=== PATIENT | male | born 1960 | race Caucasian/White ===

== ENCOUNTER → 2020-01-30 13:16 | Outpatient (CLI) | payer OTHER, SELFPAY ==
--- NOTE | 2020-01-30 | DI.MRI.S_ITS ---
PROCEDURE: MR LUMBAR SPINE WO CON INDICATIONS: Spinal stenosis, lumbar region TECHNIQUE: Noncontrast sagittal T1 spin echo and T2 fast echo, sagittal STIR, axial T1 and T2 fast spin echo through the lumbar spine. In cases with scoliosis, additional coronal T2 fast spin echo may be performed. COMPARISON: [facility], MR, L-SPINE W&WO CONTRAST, 01/16/2017, 8:49. [facility], CR, XR LUMBAR SPINE FLEXION EXTENSION, 01/08/2020, 9:04. [facility], CR, L-SPINE 2-3 VIEWS, 01/13/2015, 13:55. [facility], MR, L-SPINE WITHOUT CONTRAST, 12/24/2014, 7:24. FINDINGS: Image quality: Excellent. Alignment and Curvature: 5 lumbar type vertebral bodies are present by plain film. Mild grade 1 retrolisthesis of L1 on L2, L2 on L3, L3 on L4, and L4 on L5. Bone Marrow: Marrow is of normal overall signal. No acute vertebral body compression fractures. Mild reactive signal within the endplates adjacent to the L1-L2, L2-L3, and L3-L4 intervertebral discs. Spinal Cord: Conus medullaris terminates at the mid L1 level. Visualized cord demonstrates normal signal and size. Paraspinous Soft Tissues: No paravertebral masses. L1-L2: Moderate disc height loss and desiccation. Mild diffuse disc bulge with superimposed small broad-based right posterolateral protrusion. Mild facet and ligamentum flavum hypertrophy. Mild epidural lipomatosis. Mild canal stenosis. Mild bilateral foraminal stenosis. L2-L3: Moderate disc desiccation. Mild disc height loss. Mild diffuse disc bulge with superimposed small left paracentral protrusion. Mild facet and ligamentum flavum hypertrophy. Mild epidural lipomatosis. Mild canal stenosis. Mild bilateral foraminal stenosis. No change. L3-L4: Moderate disc height loss and desiccation. Moderate diffuse disc bulge with superimposed right paracentral protrusion. Mild facet and ligamentum flavum hypertrophy. Mild epidural lipomatosis. Increased, severe canal stenosis. No change in moderate subarticular foraminal stenosis bilaterally. L4-L5: Moderate disc desiccation. Mild disc height loss. Mild diffuse disc bulge with superimposed left posterolateral and far lateral protrusion. Mild facet and ligamentum flavum hypertrophy. Mild epidural lipomatosis. Mild canal stenosis. Severe left and moderate right foraminal stenosis. Left L4 nerve root compression. No change. L5-S1: Mild disc height loss and desiccation. Mild diffuse disc bulge. Mild bilateral facet hypertrophy. Mild canal stenosis. Moderate subarticular foraminal stenosis bilaterally. IMPRESSION: 1. Multilevel degenerative disc and facet disease, as well as ligamentum flavum hypertrophy and epidural lipomatosis. 2. Multilevel canal stenosis, worst at L3-L4, where there is severe canal stenosis. 3. Multilevel foraminal stenoses, worst at L4-L5 where there is associated intraforaminal nerve root compression. Recommend correlation with clinical symptoms to ascertain relevance of this finding. Dictated by: Chloe Whitehead M.D. on 01/30/2020 at 15:13 Approved by: Chloe Whitehead M.D. on 01/30/2020 at 15:19
== END ==
PROVIDERS: PCP General Practice; Referring Provider Orthopaedic Surgery Orthopaedic Surgery of the Spine; Visit Provider Orthopaedic Surgery Orthopaedic Surgery of the Spine
DX: M48.061 Spinal stenosis, lumbar region without neurogenic claudication (principal); M48.07 Spinal stenosis, lumbosacral region; M51.36 Other intervertebral disc degeneration, lumbar region; M51.37 Other intervertebral disc degeneration, lumbosacral region; E88.2 Lipomatosis, not elsewhere classified
CPT/HCPCS: 72148

== ENCOUNTER 2021-02-17 14:52 | Emergency (ER) | payer OTHER, SELFPAY | END 2021-02-17 15:25 | disposition left against medical advice (07) | PROVIDERS: Emergency Provider Emergency Medicine; PCP General Practice ==

== ENCOUNTER → 2021-09-21 10:32 | Outpatient (CLI) | payer OTHER, SELFPAY ==
[2021-09-21 12:03] LABS: Add Manual Diff / Slide Review NO; Basophils Absolute Auto 100 /uL (0-100); Basophils Percent Auto 1.2 % (0-2); Eosinophils Absolute Auto 200 /uL (0-450); Eosinophils Percent Auto 4.9 % (2-4); Hematocrit 41.2 % (41-53); Hemoglobin 14.1 g/dL (13.5-17.5); Lymphocytes Absolute Auto 1100 /uL (1100-4500); Lymphocytes Percent Auto 25.5 % (25-40); Mean Corpuscular HGB Conc 34.2 % (30-36); Mean Corpuscular Hemoglobin 30.6 PG (26-34); Mean Corpuscular Volume 89.6 fL (80-100); Monocytes Absolute Auto 500 /uL (0-900); Monocytes Percent Auto 11.4 % (3-14); Neutrophils Absolute Auto 2500 /uL (1500-7000); Platelet Count 168 X10^3/uL (150-400); Red Cell Distribution Width 14.2 % (11.6-14.8); White Blood Cell Count 4.4 X10^3/uL (4.5-11.0)
[2021-09-21 12:12] LABS: Alanine Aminotransferase 35 IU/L (<50); Albumin 4.5 g/dL (3.5-5.0); Albumin Globulin Ratio 1.6 (1.0-2.8); Alkaline Phosphatase 64 U/L (38-126); Aspartate Aminotransferase 31 IU/L (17-59); BUN Creatinine Ratio 15.7 (6-22); Bilirubin Total 0.7 mg/dL (0.2-1.3); Blood Urea Nitrogen 16 mg/dL (9-20); Calcium 9.1 mg/dL (8.4-10.2); Carbon Dioxide 33 mmol/L (22-32); Chloride 102 mmol/L (98-107); Cholesterol 221 mg/dL (140-199); Estimated Glomerular Filt Rate > 60 mL/min (>60); Globulin 2.8 g/dL (1.7-4.1); Glucose 104 mg/dL (80-110); HDL Cholesterol 49 mg/dL (40-60); HEMOLYSIS < 15 (0-50); LDL Cholesterol Calculated 131 mg/dL (<100); Sodium 141 mmol/L (137-145); Total Protein 7.3 g/dL (6.3-8.2); Triglycerides 205 mg/dL (35-150)
[2021-09-21 12:41] LABS: Prostate Specific Antigen Scrn 2.81 ng/mL (0.1-4.0)
== END ==
PROVIDERS: PCP Internal Medicine; Referring Provider Internal Medicine; Visit Provider Internal Medicine
DX: I44.7 Left bundle-branch block, unspecified (principal); Z12.5 Encounter for screening for malignant neoplasm of prostate
CPT/HCPCS: 36415; 80053; 80061; 84443; 85025; G0103

== ENCOUNTER → 2022-08-26 12:53 | Outpatient (CLI) | payer OTHER, SELFPAY ==
--- NOTE | 2022-08-26 12:55 | DI.RAD.S_ITS ---
PROCEDURE: XR HIP W PEL IF DONE LT 2V INDICATIONS: Left hip injury TECHNIQUE: To views of the hip were acquired. COMPARISON: None. FINDINGS: Bones: No fractures or dislocations. No suspicious bony lesions. The visualized pelvic ring appears intact. Mild osteoarthritic changes of the hips. Iliac enthesophytes. Soft tissues: No suspicious soft tissue calcifications or masses. Surgical clips overlie the scrotum. IMPRESSION: No acute fracture. Dictated by: Cyrus Choe M.D. on 08/26/2022 at 13:05 Approved by: Cyrus Choe M.D. on 08/26/2022 at 13:06
== END ==
PROVIDERS: PCP Internal Medicine; Referring Provider Registered Nurse; Visit Provider Registered Nurse
DX: M25.552 Pain in left hip (principal)
CPT/HCPCS: 73502

== ENCOUNTER → 2022-11-20 07:06 | Outpatient (CLI) | payer OTHER, SELFPAY ==
--- NOTE | 2022-11-20 09:06 | DI.MRI.S_ITS ---
PROCEDURE: MR LUMBAR SPINE WO CON INDICATIONS: RADICULOPATHY,LUMBAR REGION TECHNIQUE: Noncontrast sagittal T1 spin echo and T2 fast echo, sagittal STIR, and T2 fast spin echo through the lumbar spine. In cases with scoliosis, additional coronal T2 fast spin echo may be performed. COMPARISON: [facility], MR, L-SPINE W&WO CONTRAST, 01/16/2017, 8:49. [facility], MR, MR LUMBAR SPINE WO CON, 01/30/2020, 14:10. FINDINGS: Image quality: Excellent. Alignment and Curvature: Trace anterolisthesis of T12 on L1. Trace retrolisthesis of L1 on L2 and of L2 on L3 and of L5 on S1. Bone Marrow: Marrow is of normal overall signal. No acute vertebral body compression fractures. Spinal Cord: Conus medullaris terminates at the top of L1 level. Visualized cord demonstrates normal signal and size. Paraspinous Soft Tissues: No paravertebral masses. T12-L1: Development of mild to moderate disc height loss and increased diffuse disc bulge. Facet hypertrophy. Borderline canal stenosis. No significant foraminal stenosis. L1-L2: Interval increase in disc height loss. Increased disc bulge. Facet and ligament hypertrophy. Development of mild canal stenosis. Mild bilateral foraminal stenosis. L2-L3: There is a probably acute or relatively acute free disc fragment that has migrated cephalad in the left lateral recess behind L2, measuring approximately 1.2 x 0.8 x 0.4 cm, impinging on the left L2 nerve root as it is exiting into the neural foramen and also impinging on the left L3 nerve root in the left lateral recess. Reference sagittal T2 image 11 of series 3 and axial T2 image 13 of series 6. Additionally, there is moderate diffuse disc bulge. There is facet hypertrophy. There is moderate to severe stenosis at the level of the disc space. There is increase in the size of a inferior left paracentral disc extrusion with moderate narrowing of the left side of the canal inferior to the disc space, as well. L3-L4: Slight interval improvement. Interval decrease in a right paracentral disc protrusion. Diffuse disc bulge, eccentric to the right. Prominent facet and ligament hypertrophy. Moderate to severe canal stenosis. Moderate bilateral foraminal narrowing, as before. L4-L5: Interval development of disc height loss. Slight interval increase in disc bulge. Interval increase in canal stenosis, moderate to severe. Moderate bilateral foraminal narrowing with a degree of bilateral foraminal L4 nerve root impingement. L5-S1: Bilateral facet hypertrophy. Disc bulge. No canal stenosis. Bilateral mild to moderate foraminal stenosis. IMPRESSION: 1. There is significant interval worsening at L2-L3. An acute or relatively acute free disc fragment migrating superiorly in the left lateral recess behind L2 impinges on both the left L2 nerve root as it exits to the foramen and the left L3 nerve root. Additionally, there is increase in the size of an inferior left paracentral disc extrusion moderately narrowing the canal inferior to the disc space. 2. Progression of findings at T12-L1, L1-L2, and L4-L5. 3. Findings have improved slightly at L3-L4. There is still moderate to severe canal stenosis. 4. Canal stenosis is borderline at T12-L1, mild at L1-L2, moderate to severe at L2-L3, moderate to severe at L3-L4, and moderate to severe at L4-L5. 5. Multilevel foraminal narrowing as described above. Dictated by: Faizan Bullock M.D. on 11/20/2022 at 13:04 Approved by: Faizan Bullock M.D. on 11/20/2022 at 13:36
== END ==
PROVIDERS: PCP Internal Medicine; Referring Provider Orthopaedic Surgery; Visit Provider Orthopaedic Surgery
DX: M51.16 Intervertebral disc disorders with radiculopathy, lumbar region (principal); M48.061 Spinal stenosis, lumbar region without neurogenic claudication
CPT/HCPCS: 72148

== ENCOUNTER → 2023-07-04 07:51 | Outpatient (CLI) | payer OTHER, SELFPAY ==
[2023-07-04 08:37] LABS: BUN Creatinine Ratio 15.5 (6-22); Blood Urea Nitrogen 15 mg/dL (9-20); Calcium 9.2 mg/dL (8.4-10.2); Carbon Dioxide 28 mmol/L (22-32); Chloride 104 mmol/L (98-107); Cholesterol 204 mg/dL (140-199); Estimated Glomerular Filt Rate > 60 mL/min (>60); Glucose 128 mg/dL (80-110); HDL Cholesterol 51 mg/dL (40-60); HEMOLYSIS < 15 (0-50); LDL Cholesterol Calculated 117 mg/dL (<100); Sodium 140 mmol/L (137-145); Triglycerides 179 mg/dL (35-150)
== END ==
LOC: LAB 07:51
PROVIDERS: PCP Internal Medicine; Referring Provider Internal Medicine; Visit Provider Internal Medicine
DX: Z12.5 Encounter for screening for malignant neoplasm of prostate (principal); E78.2 Mixed hyperlipidemia; I44.7 Left bundle-branch block, unspecified; Z00.00 Encounter for general adult medical examination without abnormal findings
CPT/HCPCS: 36415; 80048; 80061; G0103

== ENCOUNTER 2023-07-31 07:51 | Day surgery (SDC) | payer OTHER, SELFPAY ==
[2023-07-31 08:04] VITALS: BP 150/90; PULSE 82; RESP 16; TEMP 36.1; O2SAT 99
--- NOTE | 2023-07-31 08:08 | P.HP_ITS ---
History of Present Illness History of Present Illness Date Patient Seen: 07/31/23 Time Patient Seen: 08:08 Chief complaint: SDC Narrative: 62-year-old male here for screening colonoscopy. Last colonoscopy 9 years ago. No family history of intestinal malignancy. Feels ?plugged upleft lower quadrant at times. 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 Smoking Status: Never smoker Meds Home Medications and Allergies Home Medications Medication Instructions Recorded Confirmed Type fluticasone propionate 50 1 spray intranasal DAILY 09/21/21 07/10/23 History mcg/actuation nasal spray,suspension (Flonase Allergy Relief) amitriptyline 100 mg tablet 100 mg PO DAILY #90 tabs 04/25/23 07/31/23 Rx sildenafil 50 mg tablet 50 mg PO DAILY PRN sexual activity 04/25/23 07/10/23 Rx #10 tabs cyclobenzaprine 10 mg tablet 10 mg PO TID PRN muscle spasm #30 05/15/23 07/10/23 Rx tabs amitriptyline 25 mg tablet 50 mg (2 x 25 mg) PO DAILY #180 07/05/23 07/10/23 Rx tabs sodium,potassium,mag sulfates 17.5 See Rx Instructions PO .COMPLEX 07/17/23 Rx gram-3.13 gram-1.6 gram oral soln #354 mL (Suprep Bowel Prep Kit) Allergies Allergy/AdvReac Type Severity Reaction Status Date / Time Penicillins Allergy Unknown unkown Verified 07/10/23 08:02 Exam Narrative Exam Narrative: General adult man alert oriented no acute distress Chest nonlabored respiration Extremities warm well perfused Assessment & Plan Assessment & Plan narrative: The patient requires colorectal screening and colonoscopy is recommended. Technical details were discussed. Risks, benefits, alternatives explained. Risks including but not limited to myocardial infarction, aspiration, bleeding, pain, missed lesion, incomplete examination, need for further radiographic studies, colonic perforation, and need for major abdominal surgery were discussed. All questions were answered to their satisfaction, and they are in agreement with this plan.
[2023-07-31] MEDS: LACTATED RINGERS 1,000 ML 42 ML IV (08:13)
[2023-07-31 09:20] VITALS: BP 121/81; PULSE 71; RESP 14; TEMP 36.2; O2SAT 95
--- NOTE | 2023-07-31 09:21 | P.OP.COLON_ITS ---
Operative Date/Time/Diagnoses Date of procedure: 07/31/23 Time of procedure: 09:22 Pre-op diagnosis: Colorectal screening Procedure & Clinicians Study performed: Colonoscopy Same procedure as scheduled: Yes Indications: Colorectal screening Surgeon: Clayton Pappas Procedure Notes Procedure in detail: The history and physical was performed/updated and the patient is ASA class is 2. The procedure was discussed in detail with the patient. Potential risks complications including infection, bleeding, missed diagnosis, perforation, need for surgery, and were explained. Their questions were answered and informed consent was obtained. Patient was brought to the procedure room and placed standard monitoring equipment. The patient's vital signs were monitored continuously throughout the entire procedure. Prior to starting time-out was performed. The patient was placed in the left lateral recumbent position. Procedural sedation was administered by anesthesia. Examination began with a thorough inspection of the perianal area there was no evidence of fissures, fistulae, external hemorrhoids or cutaneous malignancy. The colonoscopy scope was then placed into the anal canal and was advanced to the cecum, which was identified by the ileocecal valve , the appendiceal orifice and the confluence of the taenia. The scope was then slowly withdrawn examining colon thoroughly in all directions, irrigating it of any residual stool. The scope was retroflexed within the rectum The patient tolerated the procedure well. They will be discharged once criteria are met. The prep was of good/excellent quality. The withdrawl time was 6 minutes. FINDINGS * Normal colonoscopy. No masses polyps inflammation. Specimen(s): none sent Impression: Normal colonoscopy Post-procedure Recommendations: Colonoscopy in 10 years and High fiber diet Disposition: same day surgery
[2023-07-31 09:25] VITALS: BP 131/87; PULSE 69; RESP 13; O2SAT 95
[2023-07-31 09:30] VITALS: BP 141/99; PULSE 73; RESP 18; O2SAT 95
[2023-07-31 09:40] VITALS: BP 140/94; PULSE 70; RESP 10; O2SAT 96
== END 2023-07-31 09:53 | disposition home or self-care (01) ==
PROVIDERS: PCP Internal Medicine; Referring Provider Surgery; Visit Provider Surgery
PROC: 0DJD8ZZ Inspection of Lower Intestinal Tract, Via Natural or Artificial Opening Endoscopic (ICD-10-PCS; CPT 45378; principal; 2023-07-31 08:45)
DX: Z12.11 Encounter for screening for malignant neoplasm of colon (principal)
CPT/HCPCS: 45378; J2704

== ENCOUNTER → 2024-05-21 15:20 | Outpatient (CLI) | payer OTHER, SELFPAY ==
[2024-05-21 18:08] LABS: Aspartate Aminotransferase 33 IU/L (17-59); BUN Creatinine Ratio 14.9 (6-22); Blood Urea Nitrogen 15 mg/dL (9-20); Calcium 9.7 mg/dL (8.4-10.2); Carbon Dioxide 30 mmol/L (22-32); Chloride 103 mmol/L (98-107); Cholesterol 213 mg/dL (140-199); Estimated Glomerular Filt Rate > 60 mL/min (>60); Glucose 98 mg/dL (80-110); HDL Cholesterol 61 mg/dL (40-60); HEMOLYSIS < 15 (0-50); Hemoglobin A1C% w Est Avg Glu 5.3 % (4.0-6.0); LDL Cholesterol Calculated 131 mg/dL (<100); Potassium 4.7 mmol/L (3.4-5.1); Sodium 140 mmol/L (137-145); Triglycerides 103 mg/dL (35-150)
[2024-05-21 18:41] LABS: Prostate Specific Antigen Scrn 2.92 ng/mL (0.1-4.0)
== END ==
PROVIDERS: PCP Internal Medicine; Referring Provider Internal Medicine; Visit Provider Internal Medicine
DX: R03.0 Elevated blood-pressure reading, without diagnosis of hypertension (principal); E78.2 Mixed hyperlipidemia; Z12.5 Encounter for screening for malignant neoplasm of prostate; R73.01 Impaired fasting glucose
CPT/HCPCS: 36415; 80048; 80061; 83036; 84450; G0103

== ENCOUNTER 2024-08-10 14:21 | Emergency (ER) | payer OTHER, SELFPAY ==
[2024-08-10] VITALS (13 sets, daily range): BP systolic 139–183; BP diastolic 68–90; PULSE 57–64; RESP 9–25; TEMP 36.6; O2SAT 97–100; BMI 33.2
--- NOTE | 2024-08-10 14:46 | EKG_ITS ---
[place] [id number] [place] [id number] Test Date: 2024-08-10 Pat Name: Alcides Moore Department: [facility] Room: Gender: Male [employer] Attendant: : 1960 Requested By: Order Number: [id number] Reading MD: Delfino Arevalo Measurements Intervals [place] Rate: 58 P: 73 [place]: 194 QRS: -13 QRSD: 148 T: 117 QT: 464 QTc: 455 Interpretive Statements Sinus bradycardia Left bundle branch block Electronically Signed On 08-10-2024 18:58:16 PST by Delfino Arevalo
[2024-08-10 15:44] LABS: Alanine Aminotransferase 57 IU/L (<50); Albumin 4.4 g/dL (3.5-5.0); Albumin Globulin Ratio 1.6 (1.0-2.8); Alkaline Phosphatase 104 U/L (38-126); Aspartate Aminotransferase 41 IU/L (17-59); BUN Creatinine Ratio 14.1 (6-22); Bilirubin Total 1.8 mg/dL (0.2-1.3); Blood Urea Nitrogen 14 mg/dL (9-20); Calcium 8.8 mg/dL (8.4-10.2); Carbon Dioxide 24 mmol/L (22-32); Chloride 107 mmol/L (98-107); Estimated Glomerular Filt Rate > 60 mL/min (>60); Globulin 2.7 g/dL (1.7-4.1); Glucose 99 mg/dL (80-110); HEMOLYSIS 25 (0-50); Lipase 73 U/L (23-300); Potassium 4.2 mmol/L (3.4-5.1); Sodium 141 mmol/L (137-145); Total Protein 7.1 g/dL (6.3-8.2)
[2024-08-10 16:27] LABS: Add Manual Diff / Slide Review NO; Basophils Absolute Auto 100 /uL (0-100); Basophils Percent Auto 0.9 % (0-2); Eosinophils Absolute Auto 2100 /uL (0-450); Eosinophils Percent Auto 29.8 % (2-4); Hematocrit 42.4 % (41-53); Hemoglobin 14.4 g/dL (13.5-17.5); Lymphocytes Absolute Auto 1500 /uL (1100-4500); Lymphocytes Percent Auto 20.8 % (25-40); Mean Corpuscular Hemoglobin 30.2 PG (26-34); Monocytes Absolute Auto 600 /uL (0-900); Monocytes Percent Auto 8.1 % (3-14); Neutrophils Absolute Auto 2900 /uL (1500-7000); Neutrophils Percent Auto 40.4 % (50-75); Platelet Count 154 X10^3/uL (150-400); Red Blood Cell Count 4.77 X10^6/uL (4.5-5.9); White Blood Cell Count 7.1 X10^3/uL (4.5-11.0)
--- NOTE | 2024-08-10 19:15 | ED.ABDPAIN ---
HPI - Abdominal Pain General Chief Complaint: Abdominal Pain Stated Complaint: Abdominal pain Time Seen by Provider: 08/10/24 19:15 Source: patient Mode of arrival: Ambulatory History of Present Illness HPI narrative: 63-year-old male past medical history of hypertension hyperlipidemia left bundle branch block comes into the ED from home for evaluation of abdominal pain states it has been ongoing persistent for the past 11 days states it is near his left upper quadrant region he denies any nausea vomiting diarrhea constipation but states that he has had decreased p.o. intake secondary to his pain. He states that he believes that eating does make it a little worse but nothing makes it better. He describes the pain as a dull ache intermittent lasting for only several minutes to seconds at a time. He states that given the fact that it has not gone away in the past 11 days wanted to be evaluated for this. Denies any surgeries to the abdomen before. He denies any other symptoms such as headache visual disturbances chest pain shortness of breath fever chills nausea vomiting or any other GI/ symptoms at this time. Related Data Home Medications Medication Instructions Recorded Confirmed fluticasone propionate 50 1 spray intranasal DAILY 09/21/21 06/23/24 mcg/actuation nasal spray,suspension (Flonase Allergy Relief) Previous Rx's Medication Instructions Recorded sildenafil 50 mg tablet 50 mg PO DAILY PRN sexual activity 04/25/23 #10 tabs amitriptyline 25 mg tablet 50 mg (2 x 25 mg) PO DAILY #50 tabs 03/06/24 mirtazapine 15 mg tablet 15 mg PO BEDTIME #90 tabs 03/06/24 amlodipine 5 mg tablet 5 mg PO DAILY #90 tabs 05/21/24 omeprazole 20 mg capsule,delayed 20 mg PO DAILY 1 month #30 caps 08/10/24 release Allergies Allergy/AdvReac Type Severity Reaction Status Date / Time Penicillins Allergy Unknown unkown Verified 06/23/24 14:54 Review of Systems Review of Systems Narrative: General: Denies fever, chills, weight loss HEENT: Denies headache, eye drainage, eye irritation, head trauma, sore throat, voice change Cardiovascular: Denies any chest pain, palpitations, shortness of breath, tachycardia Respiratory: Denies any shortness of breath, cough, wheeze, stridor GI/: Positive left upper quadrant/epigastric abdominal pain, denies nausea, vomiting, diarrhea, bright red blood per rectum, melanotic stools, urinary frequency, urinary retention, dysuria, hematuria MSK: Denies any joint pain, muscle pains, swelling Skin: Denies any rashes, lesions, discoloration Neuro: Denies any headache, lightheadedness, dizziness, fainting, weakness Psych: Denies SI/HI Patient History Medical History Essential hypertension Impaired fasting glucose Elevated blood pressure reading without diagnosis of hypertension Erectile dysfunction Swelling of right parotid gland Obesity (BMI 30.0-34.9) Sensorineural hearing loss, bilateral Mixed hyperlipidemia Chronic back pain Allergic rhinitis due to pollen (~2001) Restless legs syndrome Obstructive sleep apnea (~2011) LBBB (left bundle branch block) Insomnia Surgical History Anesthesia History of back surgery (~01/2015) History of colonoscopy (~2014) Family History Father History of heart disease Mother History of heart disease Social History marital status: details: [employer]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, 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 Smoking Status: Never smoker Smoking Status: Never smoker alcohol intake frequency: a few times a week Exam Narrative Exam Narrative: General: Cooperative, comfortable, well-developed, not in acute distress HEENT: Normocephalic, atraumatic, PERRLA, normal sclera, eyelids normal, Neck: Active full range of motion, atraumatic Chest: Normal to inspection, negative crepitus, no overlying erythema ecchymosis Respiratory: Normal respiratory effort, not in acute respiratory distress, clear to auscultation bilaterally negative cough, wheeze, tachypnea, rhonchi, rales Cardiology: Regular rate rhythm negative gallop, murmur, rubs GI/: Normal to inspection, soft, nonrigid, no tenderness to palpation, exam deferred MSK: Full range of active range of motion of all 4 extremities, atraumatic Skin: No rashes lesions noted Neuro: Alert awake oriented x3, moves all 4 extremities spontaneously, cranial nerves intact, able to answer all questions appropriately follows commands appropriately Psych: Cooperative, negative suicidal or homicidal ideations Initial Vital Signs Initial Vital Signs: Vital Signs Temperature 97.8 F 08/10/24 14:42 Pulse Rate 59 L 08/10/24 14:42 Respiratory Rate 16 08/10/24 14:42 Blood Pressure 146/68 H 08/10/24 14:42 Pulse Oximetry 98 08/10/24 14:42 Oxygen Delivery Method Room Air 08/10/24 14:42 Course Orders Ordered: ED Orders 08/10/24 19:21 CT abdomen pelvis w con Stat CXR [XR chest 1V] Stat 08/10/24 19:37 MAG [Magnesium] Stat Trop I [Troponin I] Stat Discontinued Medications Famotidine (Famotidine 20 Mg/2 Ml Vial) 20 mg IV NOW ONE Stop: 08/10/24 19:22 Last Admin: 08/10/24 19:27 Dose: 20 mg Documented By: Ondansetron HCl (Ondansetron 4 Mg/2 Ml Inj) 4 mg IV NOW PRN PRN Reason: Nausea And Vomiting Ondansetron HCl (Ondansetron 4 Mg Odt) 4 mg PO NOW PRN PRN Reason: Nausea And Vomiting Vital Signs Vital signs: Vital Signs - 8 hr 08/10/24 17:57 08/10/24 18:00 08/10/24 18:00 Pulse Rate 59 L 59 L Respiratory Rate 10 L Blood Pressure 171/83 H Pulse Oximetry 99 99 08/10/24 18:30 08/10/24 18:30 08/10/24 19:00 Pulse Rate 61 Respiratory Rate 13 Blood Pressure 165/86 H 183/90 H Pulse Oximetry 99 08/10/24 19:00 08/10/24 19:30 08/10/24 20:25 Pulse Rate 61 62 61 Respiratory Rate 9 L 25 H 20 Blood Pressure Pulse Oximetry 100 99 100 08/10/24 20:30 08/10/24 21:00 08/10/24 21:30 Pulse Rate 61 64 60 Respiratory Rate 18 14 Blood Pressure Pulse Oximetry 99 98 99 08/10/24 22:05 08/10/24 22:30 08/10/24 22:33 Pulse Rate 58 L 57 L 60 Respiratory Rate Blood Pressure Pulse Oximetry 99 98 97 08/10/24 22:33 Pulse Rate Respiratory Rate Blood Pressure 139/79 Pulse Oximetry MDM - Abdominal Pain Differential Diagnosis Differential diagnosis: Likely other (ACS, pancreatitis, electrolyte abnormality, pneumonia, cholecystitis, GERD) Lab Data 08/10/24 15:48 08/10/24 15:05 Labs: Lab Results 08/10/24 08/10/24 08/10/24 Range/Units 15:05 15:48 19:37 WBC 7.1 (4.5-11.0) X10^3/uL RBC 4.77 (4.5-5.9) X10^6/uL Hgb 14.4 (13.5-17.5) g/dL Hct 42.4 (41-53) % MCV 89.0 (80-100) fL MCH 30.2 (26-34) PG MCHC 34.0 (30-36) % RDW 14.0 (11.6-14.8) % Plt Count 154 (150-400) X10^3/uL Neut % (Auto) 40.4 L (50-75) % Lymph % (Auto) 20.8 L (25-40) % [place] % (Auto) 8.1 (3-14) % Eos % (Auto) 29.8 H (2-4) % Baso % (Auto) 0.9 (0-2) % Neut # (Auto) 2900 (4938-9800) /uL Lymph # (Auto) 1500 (3418-8740) /uL [place] # (Auto) 600 (0-900) /uL Eos # (Auto) 2100 H (0-450) /uL Baso # (Auto) 100 (0-100) /uL Sodium 141 (137-145) mmol/L Potassium 4.2 (3.4-5.1) mmol/L Chloride 107 (98-107) mmol/L Carbon Dioxide 24 (22-32) mmol/L BUN 14 (9-20) mg/dL Creatinine 0.99 (0.66-1.25) mg/dL Estimated GFR > 60 (>60) mL/min BUN/Creatinine Ratio 14.1 (6-22) Glucose 99 (80-110) mg/dL Calcium 8.8 (8.4-10.2) mg/dL Magnesium 2.0 (1.6-2.3) mg/dL Total Bilirubin 1.8 H (0.2-1.3) mg/dL AST 41 (17-59) IU/L ALT 57 H (<50) IU/L Alkaline Phosphatase 104 (38-126) U/L Troponin I < 0.012 (0.01-0.034) ng/mL Total Protein 7.1 (6.3-8.2) g/dL Albumin 4.4 (3.5-5.0) g/dL Globulin 2.7 (1.7-4.1) g/dL Albumin/Globulin Ratio 1.6 (1.0-2.8) Lipase 73 (23-300) U/L Point of care testing: Urine Dip Bedside Urine Glucose Negative Bedside Urine Bilirubin - Negative Bedside Urine Ketone - Negative Urine Specific Oliver 1.010 Bedside Urine Occult Blood +/- Bedside Urine pH 6.0 Bedside Urine Protein - Negative Bedside Urine Urobilinogen - Negative Bedside Urine Nitrite - Negative Bedside Urine Leukocytes - Negative Esterase Imaging Data Chest x-ray: Radiologist's Impression: [address] [address] XRay Report Signed Patient: Alcides Moore MR#: [id number] : 1960 Acct:[id number] Age/Sex: 63 / M Date of Service: 08/10/24 Loc: ED Accession Number: [id number] Procedure: XR chest 1V Ordering Provider: Delfino Caro D.O. PROCEDURE: XR CHEST 1V INDICATIONS: epigastric pain (LUQ worse) TECHNIQUE: One view of the chest was acquired. COMPARISON: None. FINDINGS: Surgical changes and devices: None. Lungs and pleura: Lungs are clear. No pleural effusions or pneumothorax. Mediastinum: Mediastinal contours appear normal. Heart size is normal. Bones and chest wall: No suspicious bony lesions. Overlying soft tissues appear unremarkable. IMPRESSION: No acute cardiopulmonary pathology. CT scan - abdomen/pelvis: Radiologist's Impression: [address] [address] [address] Scan Report Signed Patient: Alcides Moore MR#: [id number] : 1960 Acct:[id number] Age/Sex: 63 / M Date of Service: 08/10/24 Loc: ED Accession Number: [id number] Procedure: CT abdomen pelvis w con Ordering Provider: Delfino Caro D.O. PROCEDURE: CT ABDOMEN PELVIS W CON INDICATIONS: LUQ abd pain TECHNIQUE: After the administration of intravenous contrast, axial sections acquired from the lung bases to the pubic symphysis. Coronal and sagittal reformats were performed. For radiation dose reduction, the following was used: automated exposure control, adjustment of mA and/or kV according to patient size. COMPARISON: None. FINDINGS: Image quality: Diagnostic. Lower Chest: No significant findings. ABDOMEN: Liver: No solid mass. Gallbladder: Gallbladder is distended. No radiopaque gallstones or wall thickening. Biliary ducts: No biliary dilation. Pancreas: No ductal dilation. Spleen: Size is within normal limits. Adrenal Glands: No adrenal nodules. Kidneys and Ureters: Punctate bilateral nonobstructing renal calculi are seen measures 1-2 mm in size. No hydronephrosis. No solid mass. There is mild left perinephric fat stranding. No complex renal cystic lesion which requires follow up. Simple appearing lower pole right renal cyst is seen. Stomach and Bowel: There is no bowel obstruction. No abnormal bowel wall thickening or mesenteric fat stranding. Appendix is visualized and is within normal limits. No abscess collection. Mild sigmoid diverticulosis without CT evidence of acute diverticulitis. Peritoneum: No abnormal intraperitoneal fluid. No free air. Ventral Wall: No significant ventral hernia. Abdominal Nodes: No retroperitoneal or mesenteric adenopathy by size criteria. Vessels: Aorta and inferior vena cava are normal in size. PELVIS: Pelvic Organs: Enlarged prostate gland with mass effect on floor of urinary bladder is seen. Bladder: Mild bladder wall thickening. No discrete bladder wall mass. Pelvic Nodes: No enlarged lymph nodes. Miscellaneous: No inguinal hernias are seen. Bones: No aggressive osseous abnormality. Degenerative disc disease throughout lumbar spine is seen more notably at L1-2, L2-3 and L4-5 levels. IMPRESSION: 1. Bilateral nonobstructing renal calculi. No hydronephrosis or hydroureter. 2. Very mild left perinephric fat stranding. Infectious inflammatory pyelonephritis cannot be excluded. Clinical correlation is recommended. 3. Mild diffuse bladder wall thickening. No discrete bladder wall mass. Enlarged prostate gland with mass effect on floor of urinary bladder and may suggest chronic urinary outlet obstruction. 4. No bowel obstruction or abnormal bowel wall thickening. Normal appendix. No free fluid or free air. Mild sigmoid diverticulosis without CT evidence of acute diverticulitis. 5. Degenerative disc disease in lumbar spine as above. ECG Data Interpretation: EKG interpreted by ED physician sinus bradycardia at 58 beats per minute QTC 455 left bundle branch block noted normal axis nonspecific ST changes (patient with a known left bundle branch block) MDM Narrative Medical decision making narrative: 63-year-old male with a history of hypertension hyperlipidemia presenting for 11 days of dull aching left upper quadrant abdominal pain states worse with p.o. intake. Patient had EKG at baseline nonischemic with known left bundle branch block not meeting Sgarbossa criteria. Lab work without any leukocytosis mild elevation in his bilirubin at 1.8 but no positive Georges's sign no tenderness to palpation of the right upper quadrant region. Patient had chest x-ray and CT abdomen pelvis performed. Chest x-ray without any acute signs of cardiopulmonary abnormalities. CT abdomen without any acute findings. Patient had improvement of symptoms after administration of medication here, patient's symptoms more likely GI in nature. Patient will be sent home with symptomatic relief instructed follow up with primary care and GI in outpatient setting he was given strict return precautions he verbalized understanding of this and agrees to being discharged home with outpatient follow up Discharge Plan Departure Patient Disposition: Home Clinical Impression: Abdominal pain Instructions: DI for Abdominal Pain-Adult Activity Restrictions/Additional Instructions: Please follow up with primary care and GI Please read the discharge instructions sheet carefully and bring all papers to all doctor follow-up visits, as it may contain information that your doctor may want to see. Disease processes change and evolve, if your symptoms worsen or if you develop any new symptoms that are concerning to you please return for evaluation. Your evaluation today does not show any evidence of any life-threatening/serious illnesses requiring admission to the hospital or surgery. Please follow-up with your doctor for re-evaluation in approximately 1 day. Seek immediate medical attention for any worrisome symptoms. *If you do not have a primary care provider please contact the [facility] Resource line at [phone]. They will ask some questions about your medical history and help get you set up with a doctor in the community. Prescriptions: New omeprazole 20 mg capsule,delayed release(DR/EC) 20 mg PO DAILY 30 Days Qty: 30 0RF No Action sildenafil 50 mg tablet 50 mg PO DAILY PRN (Reason: sexual activity) Qty: 10 6RF fluticasone propionate [Flonase Allergy Relief] 50 mcg/actuation spray,suspension 1 spray intranasal DAILY Rx Instructions: administer into each nostril mirtazapine 15 mg tablet 15 mg PO BEDTIME Qty: 90 3RF amitriptyline 25 mg tablet 50 mg PO DAILY Qty: 50 0RF amlodipine 5 mg tablet 5 mg PO DAILY Qty: 90 3RF Referrals: Schuyler Lopez MD [Non-Staff] - Real Hennessy MD [Primary Care Provider] - Stand Alone Forms: Patient Portal/API/Survey
--- NOTE | 2024-08-10 19:21 | DI.CT.S_ITS ---
PROCEDURE: CT ABDOMEN PELVIS W CON INDICATIONS: LUQ abd pain TECHNIQUE: After the administration of intravenous contrast, axial sections acquired from the lung bases to the pubic symphysis. Coronal and sagittal reformats were performed. For radiation dose reduction, the following was used: automated exposure control, adjustment of mA and/or kV according to patient size. COMPARISON: None. FINDINGS: Image quality: Diagnostic. Lower Chest: No significant findings. ABDOMEN: Liver: No solid mass. Gallbladder: Gallbladder is distended. No radiopaque gallstones or wall thickening. Biliary ducts: No biliary dilation. Pancreas: No ductal dilation. Spleen: Size is within normal limits. Adrenal Glands: No adrenal nodules. Kidneys and Ureters: Punctate bilateral nonobstructing renal calculi are seen measures 1-2 mm in size. No hydronephrosis. No solid mass. There is mild left perinephric fat stranding. No complex renal cystic lesion which requires follow up. Simple appearing lower pole right renal cyst is seen. Stomach and Bowel: There is no bowel obstruction. No abnormal bowel wall thickening or mesenteric fat stranding. Appendix is visualized and is within normal limits. No abscess collection. Mild sigmoid diverticulosis without CT evidence of acute diverticulitis. Peritoneum: No abnormal intraperitoneal fluid. No free air. Ventral Wall: No significant ventral hernia. Abdominal Nodes: No retroperitoneal or mesenteric adenopathy by size criteria. Vessels: Aorta and inferior vena cava are normal in size. PELVIS: Pelvic Organs: Enlarged prostate gland with mass effect on floor of urinary bladder is seen. Bladder: Mild bladder wall thickening. No discrete bladder wall mass. Pelvic Nodes: No enlarged lymph nodes. Miscellaneous: No inguinal hernias are seen. Bones: No aggressive osseous abnormality. Degenerative disc disease throughout lumbar spine is seen more notably at L1-2, L2-3 and L4-5 levels. IMPRESSION: 1. Bilateral nonobstructing renal calculi. No hydronephrosis or hydroureter. 2. Very mild left perinephric fat stranding. Infectious inflammatory pyelonephritis cannot be excluded. Clinical correlation is recommended. 3. Mild diffuse bladder wall thickening. No discrete bladder wall mass. Enlarged prostate gland with mass effect on floor of urinary bladder and may suggest chronic urinary outlet obstruction. 4. No bowel obstruction or abnormal bowel wall thickening. Normal appendix. No free fluid or free air. Mild sigmoid diverticulosis without CT evidence of acute diverticulitis. 5. Degenerative disc disease in lumbar spine as above. Dictated by: Kavon Greenberg M.D. on 08/10/2024 at 20:39 Approved by: Kavon Greenberg M.D. on 08/10/2024 at 20:43
--- NOTE | 2024-08-10 19:21 | DI.RAD.S_ITS ---
PROCEDURE: XR CHEST 1V INDICATIONS: epigastric pain (LUQ worse) TECHNIQUE: One view of the chest was acquired. COMPARISON: None. FINDINGS: Surgical changes and devices: None. Lungs and pleura: Lungs are clear. No pleural effusions or pneumothorax. Mediastinum: Mediastinal contours appear normal. Heart size is normal. Bones and chest wall: No suspicious bony lesions. Overlying soft tissues appear unremarkable. IMPRESSION: No acute cardiopulmonary pathology. Dictated by: Kavon Greenberg M.D. on 08/10/2024 at 20:08 Approved by: Kavon Greenberg M.D. on 08/10/2024 at 20:09
[2024-08-10] MEDS: FAMOTIDINE 20 MG/2 ML VIAL IV (19:27)
[2024-08-10 20:07] LABS: Troponin I < 0.012 ng/mL (0.01-0.034)
== END 2024-08-10 22:37 | disposition home or self-care (01) ==
PROVIDERS: Emergency Medicine; Emergency Provider Student in an Organized Health Care Education/Training Program; PCP Internal Medicine
DX: R10.12 Left upper quadrant pain (principal); I10 Essential (primary) hypertension; E78.5 Hyperlipidemia, unspecified
CPT/HCPCS: 36415; 71045; 74177; 80053; 81003; 83690; 83735; 84484; 85025; 93005; 96374; 99284; Q9967

== ENCOUNTER → 2024-08-20 09:32 | Outpatient (CLI) | payer OTHER, SELFPAY ==
--- NOTE | 2024-08-20 09:33 | DI.RAD.S_ITS ---
PROCEDURE: XR LUMBAR SPINE MIN 4V INDICATIONS: BACK PAIN TECHNIQUE: 5 views of the lumbar spine were acquired, including bilateral oblique views. COMPARISON: [facility], CT, CT ABDOMEN PELVIS W CON, 08/10/2024, 19:31. [facility], CR, L-SPINE 2-3 VIEWS, 01/13/2015, 13:55. FINDINGS: Mild osseous demineralization. Five non rib-bearing lumbar vertebrae are present. Mild dextrocurvature of the lumbar spine with the apex at L3. Otherwise, preservation of the lumbar lordosis. Multilevel mild-moderate intervertebral disc height loss. Multilevel moderate-severe facet arthropathy, most conspicuous at L4-L5 and L5-S1. Multilevel mild-moderate neural foraminal narrowing on the oblique views. IMPRESSION: Multilevel lumbar osteoarthrosis with facet arthropathy, most conspicuous at L4-L5 and L5-S1. Dictated by: Vincenzo Orourke M.D. on 08/20/2024 at 11:12 Approved by: Vincenzo Orourke M.D. on 08/20/2024 at 11:14
== END ==
LOC: RAD 09:32
PROVIDERS: PCP Internal Medicine; Referring Provider Physical Medicine & Rehabilitation; Visit Provider Physical Medicine & Rehabilitation
DX: M47.816 Spondylosis without myelopathy or radiculopathy, lumbar region (principal); M47.817 Spondylosis without myelopathy or radiculopathy, lumbosacral region; M54.9 Dorsalgia, unspecified
CPT/HCPCS: 72110

== ENCOUNTER 2024-09-09 14:14 | Outpatient (CLI) | payer OTHER, SELFPAY ==
[2024-09-09] VITALS (9 sets, daily range): BP systolic 121–150; BP diastolic 79–85; PULSE 57–66; RESP 16–18; TEMP 36.8; O2SAT 96–100
[2024-09-09] MEDS: MIDAZOLAM 2 MG/2 ML VIAL IV (16:37)
[2024-09-09] MEDS: BETAMETHASONE 30 MG/5 ML MDV 12 MG INJ (16:46)
[2024-09-09] MEDS: iopamidoL 15 ML VIAL 3 ML INJ (16:47)
[2024-09-09] MEDS: DEXAMETHASONE 10 MG/ML VIAL 20 MG INJ (16:47)
[2024-09-09] MEDS: BUPIVACAINE 0.25% (PF) VIAL 2 ML INJ (16:47)
[2024-09-09] MEDS: BETAMETHASONE 30 MG/5 ML MDV 6 MG INJ (16:48)
--- NOTE | 2024-09-09 17:05 | PM.PROC.IR.1 ---
Date/Time/Diagnoses Date of procedure: 09/09/24 Time of procedure: 17:05 Pre-procedure diagnosis: 1. FORAMINAL STENOSIS WITH LE SYMPTOMS Post-procedure diagnosis: same Procedure Notes Procedure: 1. FLUOROSCOPICALLY GUIDED CONTRAST CONTROLLED TRANSFORAMINAL EPIDURAL STEROID INJECTION - LEFT L4/5 Indications: Alcides is referred by Dr. Hennessy for treatment of Foraminal Stenosis with Left LE Symptoms Physician: Shelton Cooney Total Fluoroscopy time (seconds): 14 Total sedation minutes: 17 Complications: none Procedure in detail & Post-procedure care: FINDINGS Foraminal Nerve Root Compression secondary to disc disease and facet hypertrophy DESCRIPTION OF PROCEDURE Following review of allergy and review of potential side effects and complications, including, but not necessarily limited to, infection, allergic reaction, local tissue breakdown, stroke, temporary or permanent nerve injury, paralysis, and possible , the patient indicated that the patient understood and agreed to proceed. An informed consent document was signed by the patient, witnessed by a nurse, and placed in the patient's chart. Additionally, other treatment options including medications, modalities, and physical therapy were reviewed with the patient. After review of previous anaesthesic history and IV conscious sedation the patient was deemed safe to proceed with today?s procedure with IV conscious sedation as ASA class II designation. Safety time-out was performed to confirm patient ID, procedure to be performed and site of procedure. IV sedation was accomplished with a combination of 2mg of Versed administered by the RN after DO order, titrated to patient comfort during the course of the procedure while the patient remained responsive to all verbal commands In the prone position following sterile prep and drape of the lumbar region, the left L4/5 posterior neuroforamen was identified fluoroscopically. The skin was anesthetized via a 25-gauge 1.5-inch needle with 1% lidocaine solution. At this point, a 25-gauge 3.5-inch spinal needle was atraumatically introduced and advanced under fluoroscopic guidance through the posterior left L4/5 neuroforamen to approximately the anterior aspect of the canal. Depth was confirmed on lateral view. Following negative aspiration, injection of approximately 1.5 cc of Isovue 200 under live fluoroscopy in the AP view confirmed excellent flow along the nerve root, into the epidural space without vascular or intrathecal uptake observed Radiological data, including multiple fluoroscopic views of the lumbosacral spine, reveal a spinal needle at the left L4/5 posterior neuroforamen. Subsequent views show flow of contrast material flowing superiorly and inferiorly along the nerve root confirming epidural flow. Subsequently, a test dose of 1.5 cc of 1% lidocaine solution was administered and patient was observed for two minutes for signs or symptoms of complications, including abdominal pain, shortness of breath, bilateral upper or lower extremity weakness, nausea and vomiting, prior to steroid injection. At this point, a total of 2cc or 10mg of dexamethasone and 6mg of betamethasone was injected without incident. The procedure tolerated the procedure well without signs or symptoms of complications prior to transfer to the recovery area continued monitoring without incident. The patient was then transferred to the recovery area where they were observed for an appropriate time after the injection. The patient reported a VAS score of 7 prior to the procedure and a post-procedure VAS of 0. POST OP INSTRUCTIONS The patient was provided a Pain Log to continue to record their response to the target-specific procedure prior to follow-up visit with their referring physician. Additionally, specific post-injection care instructions and a contact number to our office were provided if concerns arise regarding possible complications associated with the procedure are suspected.
--- NOTE | 2024-09-09 17:06 | PM.PROC.IR.1 ---
Date/Time/Diagnoses Date of procedure: 09/09/24 Time of procedure: 17:06 Pre-procedure diagnosis: 1. FORAMINAL STENOSIS WITH LE SYMPTOMS Post-procedure diagnosis: same Procedure Notes Procedure: 1. FLUOROSCOPICALLY GUIDED CONTRAST CONTROLLED TRANSFORAMINAL EPIDURAL STEROID INJECTION - LEFT L3/4 TFESI Indications: Alcides is referred by Dr. Hennessy for treatment of Foraminal Stenosis with left LE Symptoms Physician: Shelton Cooney Total Fluoroscopy time (seconds): 14 Total sedation minutes: 17 Complications: none Procedure in detail & Post-procedure care: FINDINGS Foraminal Nerve Root Compression secondary to disc disease and facet hypertrophy DESCRIPTION OF PROCEDURE Following review of allergy and review of potential side effects and complications, including, but not necessarily limited to, infection, allergic reaction, local tissue breakdown, stroke, temporary or permanent nerve injury, paralysis, and possible , the patient indicated that the patient understood and agreed to proceed. An informed consent document was signed by the patient, witnessed by a nurse, and placed in the patient's chart. Additionally, other treatment options including medications, modalities, and physical therapy were reviewed with the patient. After review of previous anaesthesic history and IV conscious sedation the patient was deemed safe to proceed with today?s procedure with IV conscious sedation as ASA class II designation. Safety time-out was performed to confirm patient ID, procedure to be performed and site of procedure. IV sedation was accomplished with a combination of 2mg of Versed was administered by the RN after DO order, titrated to patient comfort during the course of the procedure while the patient remained responsive to all verbal commands In the prone position following sterile prep and drape of the lumbar region, the left L3/4 posterior neuroforamen was identified fluoroscopically. The skin was anesthetized via a 25-gauge 1.5-inch needle with 1% lidocaine solution. At this point, a 25-gauge 3.5-inch spinal needle was atraumatically introduced and advanced under fluoroscopic guidance through the posterior left L3/4 neuroforamen to approximately the anterior aspect of the canal. Depth was confirmed on lateral view. Following negative aspiration, injection of approximately 1.5 cc of Isovue 200 under live fluoroscopy in the AP view confirmed excellent flow along the nerve root, into the epidural space without vascular or intrathecal uptake observed Radiological data, including multiple fluoroscopic views of the lumbosacral spine, reveal a spinal needle at the left L3/4 posterior neuroforamen. Subsequent views show flow of contrast material flowing superiorly and inferiorly along the nerve root confirming epidural flow. Subsequently, a test dose of 1.5cc of 1% lidocaine solution was administered and patient was observed for two minutes for signs or symptoms of complications, including abdominal pain, shortness of breath, bilateral upper or lower extremity weakness, nausea and vomiting, prior to steroid injection. At this point, a total of 2cc or 10mg of dexamethasone and 6mg betamethasone was injected without incident. The patient tolerated the procedure well without signs or symptoms of complications prior to transfer to the recovery area continued monitoring without incident. The patient was then transferred to the recovery area where they were observed for an appropriate time after the injection. The patient reported a VAS score of 7 prior to the procedure and a post-procedure VAS of 0. POST OP INSTRUCTIONS The patient was provided a Pain Log to continue to record their response to the target-specific procedure prior to follow-up visit with their referring physician. Additionally, specific post-injection care instructions and a contact number to our office were provided if concerns arise regarding possible complications associated with the procedure are suspected.
== END 2024-09-09 17:13 | disposition home or self-care (01) ==
LOC: RAD 14:15
PROVIDERS: PCP Internal Medicine; Referring Provider Physical Medicine & Rehabilitation; Visit Provider Physical Medicine & Rehabilitation
DX: M48.061 Spinal stenosis, lumbar region without neurogenic claudication (principal); M51.16 Intervertebral disc disorders with radiculopathy, lumbar region; M47.26 Other spondylosis with radiculopathy, lumbar region
CPT/HCPCS: 64483; 64484; 99152; J0702; J1100; J2250; J3490

== ENCOUNTER → 2025-05-29 11:01 | Outpatient (CLI) | payer OTHER, SELFPAY ==
[2025-05-29 11:29] LABS: Hemoglobin A1C% w Est Avg Glu 5.4 % (4.0-6.0)
[2025-05-29 11:36] LABS: Blood Urea Nitrogen 19 mg/dL (9-20); Calcium 8.8 mg/dL (8.4-10.2); Carbon Dioxide 26 mmol/L (22-32); Chloride 108 mmol/L (98-107); Cholesterol 217 mg/dL (140-199); Estimated Glomerular Filt Rate > 60 mL/min (>60); Glucose 100 mg/dL (70-99); HDL Cholesterol 55 mg/dL (40-60); HEMOLYSIS < 15 (0-50); Potassium 4.0 mmol/L (3.4-5.1); Sodium 142 mmol/L (137-145); Triglycerides 71 mg/dL (35-150)
== END ==
PROVIDERS: PCP Internal Medicine; Referring Provider Internal Medicine; Visit Provider Internal Medicine
DX: Z12.5 Encounter for screening for malignant neoplasm of prostate (principal); R79.89 Other specified abnormal findings of blood chemistry; I10 Essential (primary) hypertension; E78.2 Mixed hyperlipidemia; R73.01 Impaired fasting glucose
CPT/HCPCS: 36415; 80048; 80061; 83036; 84403; 84450; G0103

== ENCOUNTER 2025-06-02 12:45 | Outpatient (CLI) | payer OTHER, SELFPAY ==
[2025-06-02] VITALS (8 sets, daily range): BP systolic 138–171; BP diastolic 85–102; PULSE 59–65; RESP 12–17; TEMP 35.8; O2SAT 93–99
[2025-06-02] MEDS: MIDAZOLAM 2 MG/2 ML VIAL IV (14:28)
[2025-06-02] MEDS: LIDOCAINE 2% INJ MDV 20ML 5 ML INJ (14:32)
--- NOTE | 2025-06-02 14:42 | P.PCN_ITS ---
Date/Time/Diagnoses Date of procedure: 06/02/25 Time of procedure: 14:43 Pre-procedure diagnosis: FACET ARTHROPATHY Post-procedure diagnosis: same Procedure Notes Procedure: 1. Left L4, L5 and S1 MB BLOCKS SA Indications: Alcides is referred by Dr. Hennessy for treatment of Left Axial LBP. Physician: Shelton Cooney Total Fluoroscopy time (seconds): 7 Total sedation minutes: 11 Complications: none Procedure in detail & Post-procedure care: DESCRIPTION OF PROCEDURE Fluoroscopically guided, contrast-controlled left L4, L5 and S1 medial branch blocks with 0.5cc of 2% Lidocaine. Following review of allergy and review of potential side effects and complications, including, but not necessarily limited to, infection, allergic reaction, local tissue breakdown, nerve injury, paralysis, stroke and possible , the patient indicated that the patient understood and agreed to proceed. An informed consent document was signed by the patient, witnessed by a nurse, and placed in the patient's chart. After review of previous anaesthesic history and IV conscious sedation the patient was deemed safe to proceed with today?s procedure with IV conscious sedation as ASA class II designation. Safety time-out was performed to confirm patient ID, procedure to be performed and site of procedure. IV sedation was accomplished with a combination of 2mg of Versed was administered by the RN after DO order, titrated to patient comfort during the course of the procedure while the patient remained responsive to all verbal commands. In the prone position, following sterile prep and drape of the lumbar region, the left L4, L5 and S1 anatomical location of the medial branch of the dorsal ramus was identified fluoroscopically. Subsequently an anesthetic skin wheal using 1% lidocaine solution was initiated at each of the anatomical spots. Subsequently then a 22-gauge 3.5-inch spinal needle was atraumatically introduced and advanced under fluoroscopic guidance at each of the corresponding sites at the left L4, L5 and S1 MB. After negative aspiration, 0.2cc of Isovue 200 was injected, confirming placement without vascular or intrathecal uptake. Subsequently then 0.5cc of 2% Lidocaine solution was injected at each of the corresponding sites at the left L4, L5 and S1 medial branch locations. The patient tolerated the procedure well without signs or symptoms of complications. The patient tolerated the procedure well without signs or symptoms of complications prior to transfer to the recovery area continued monitoring without incident. Post-procedure, the patient was monitored initiating provocative activities to measure the amount of relief from block of the facetogenic pain. The patient reported a VAS of 7 prior to the procedure and a post-procedure VAS of 1. It has been a pleasure to assist in the diagnostic and therapeutic care of your patient. POST OP INSTRUCTIONS The patient was provided with a Pain Log to complete over the next several hours and subsequent days prior to the patient's follow up with the ordering physician. 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 The patient is aware, was provided, once again, with a Pain Log and will follow up with the referring physician for review and clinical correlation.
== END 2025-06-02 15:07 | disposition home or self-care (01) ==
PROVIDERS: PCP Internal Medicine; Referring Provider Internal Medicine; Visit Provider Physical Medicine & Rehabilitation
DX: M47.816 Spondylosis without myelopathy or radiculopathy, lumbar region (principal); M47.817 Spondylosis without myelopathy or radiculopathy, lumbosacral region
CPT/HCPCS: 64493; 64494; 99152; J2250